=== PATIENT | female | born 1975 | race Caucasian/White ===

== ENCOUNTER 2022-10-23 21:38 | Inpatient (IN) | payer BC ==
[~2022-10-23] VITALS: Ht 167.6 cm; Wt 59.1 kg
[2022-10-23] MEDS ORDERED: ondansetron/PF 4mg/2ml inj IV ONE (22:35)
[2022-10-23] MEDS ORDERED: normal saline 1000ml 1,000 ML IV ONE (22:35)
[2022-10-23 22:46] LABS: BASOPHILS % (AUTO) 0.2 % (0-1); EOSINOPHILS % (AUTO) 0 % (0-6); HEMOGLOBIN 12.5 g/dl (12.0-16.0); LYMPHOCYTES # (AUTO) 0.7 X10'3 (1.1-4.8); LYMPHOCYTES % (AUTO) 4.2 % (21-51); MEAN CORPUSCULAR HEMOGLOBIN 33.8 PG (27.0-31.0); MEAN CORPUSCULAR HGB CONC 31.3 g/dL (33.0-36.5); MEAN CORPUSCULAR VOLUME 108.2 FL (78-98); MEAN PLATELET VOLUME 9.9 FL (7.4-10.4); MONOCYTES # (AUTO) 0.8 X10'3 (0-0.9); MONOCYTES % (AUTO) 4.6 % (2-12); NEUTROPHILS # (AUTO) 15.8 X10'3 (1.8-7.7); PLATELET COUNT 273 X10'3 (140-440); RED CELL DISTRIBUTION WIDTH 14.5 % (11.5-14.5); WHITE BLOOD COUNT 17.4 X10'3 (4.5-11.0)
[2022-10-23 23:00] LABS: ALANINE AMINOTRANSFERASE 32 U/L (12-78); ALBUMIN 4.1 G/DL (3.4-5.0); ALBUMIN/GLOBULIN RATIO 1.2 (1.1-1.5); ALKALINE PHOSPHATASE 120 IU/L (46-116); ANION GAP 40 (8-16); ASPARTATE AMINO TRANSFERASE 46 U/L (10-37); BETA HCG,QUANTITATIVE 4 mIU/ml; BILIRUBIN,TOTAL 0.7 MG/DL (0.1-1.0); BLOOD UREA NITROGEN 29 MG/DL (7-18); BUN/CREATININE RATIO 12.4 (6.6-38.0); CALCIUM 8.9 MG/DL (8.5-10.1); CHLORIDE 84 MMOL/L (99-107); CREATININE 2.33 MG/DL (0.40-0.90); MAGNESIUM 1.9 MG/DL (1.5-2.4); POTASSIUM 5.1 MMOL/L (3.5-5.1); SODIUM 135 MMOL/L (135-145); TOTAL PROTEIN 7.5 G/DL (6.4-8.2); eGFR 22 ML/MIN
[2022-10-23 23:17] LABS: GLUCOSE 583 MG/DL (70-104); TOTAL CARBON DIOXIDE 11.3 MMOL/L (24-32)
[2022-10-23] MEDS ORDERED: insulin regular, human 10 units/0.1 ml syringe IV ONE (23:50)
[2022-10-23 23:56] LABS: PLATELET ESTIMATE NORMAL; STOMATOCYTES 1+; TOTAL CELLS COUNTED 100; TOXIC GRANULATION 2+; TOXIC VACUOLATION 1+
[2022-10-23 23:57] LABS: ABG BASE EXCESS -18.9 mmol/L (-2.0-2.0); ABG HCO3 6.7 mmol/L (22.0-26.0); ABG OXYGEN SATURATION 97.2 % (94-97); ABG PCO2 (T) 17.3 mmHg (32.0-45.0); ABG PO2 (T) 108.3 mmHg (75.0-100.0); ALLEN'S TEST POSITIVE; FCOHb 0.3 % (0.0-3.9); FMetHb 0.3 % (0.0-1.5); FO2Hb 96.6 % (94-97); PATIENT TEMPERATURE 37.2; TOTAL HEMOGLOBIN 12.6 G/dl (12.0-16.0)
[2022-10-23] MEDS: normal saline 1000ml 1,000 ML IV SCH (23:58)
[2022-10-24 00:16] LABS: COLOR,URINE YELLOW (Yellow); GLUCOSE, URINE 500 mg/dl (Neg); KETONES,URINE 40 mg/dl (Neg); LEUKOCYTE ESTERASE ,URINE NEGATIVE (Neg); NITRITES, URINE NEGATIVE (Neg); OCCULT BLOOD,URINE TRACE-INTACT (Neg); PH,URINE 5.5 (4.8-8.0); PROTEIN,URINE NEGATIVE (Neg); UROBILINOGEN,URINE 0.2 E.U/dL (0.2-1.0)
[2022-10-24 00:22] LABS: CLARITY,URINE SLIGHTLY CLOUDY (Clear); UA COLLECTION TYPE NON-SPECIFIED
[2022-10-24 00:24] LABS: HYALINE CASTS >30 /LPF (NEGATIVE)
[2022-10-24 00:25] LABS: BACTERIA,URINE FEW /HPF (Neg); SQUAMOUS EPITHELIAL CELL,UR MODERATE /LPF (FEW); WBC,URINE 0-4 /HPF (0-4)
[2022-10-24 00:26] LABS: TRANSITIONAL EPI CELLS,URINE FEW /HPF
[2022-10-24] MEDS ORDERED: normal saline 1000ml 1,000 ML IV ONE ×2 (00:30→00:45)
[2022-10-24] MEDS ORDERED: magnesium hydroxide 30ml (MOM) UD suspension PO PRN (00:50)
[2022-10-24] MEDS ORDERED: ondansetron/PF 4mg/2ml inj IV PRN (00:50)
[2022-10-24] MEDS ORDERED: acetaminophen 325mg tablet PO PRN (00:50)
[2022-10-24] MEDS ORDERED: mag hydrox/Alum hydrox/simeth 30ml oral suspension PO PRN (00:50)
[2022-10-24] MEDS ORDERED: magnesium 4gm in 100ml NS 100 ML IV PRN (00:50)
[2022-10-24] MEDS ORDERED: potassium Cl 40MEQ/1/2NS 520ml 520 ML IV PRN (00:50)
[2022-10-24] MEDS ORDERED: magnesium Cl slow-release 64mg tablet PO PRN (00:50)
[2022-10-24] MEDS ORDERED: potassium Cl 20 mEq SR tablet PO PRN ×2 (00:50)
[2022-10-24] MEDS ORDERED: potassium CL 20mEq in D5-1/2NS 1,000 ML IV PRN (00:55)
[2022-10-24] MEDS ORDERED: insulin regular, human U-100 3ml vial - multi-dose IV PRN (00:55)
[2022-10-24] MEDS ORDERED: Insulin Reg/NS 100units/100mL 100 ML IV SCH (00:55)
[2022-10-24] MEDS ORDERED: pantoprazole 40MG/NS 100ML BAG 100 ML IV ONE (01:00)
[2022-10-24] MEDS ORDERED: insulin regular, human 10 units/0.1 ml syringe SQ ONE (01:45)
[2022-10-24] MEDS: normal saline 1000ml 1,000 ML IV SCH ×12 (03:11→23:55)
[2022-10-24] MEDS ORDERED: FLUT1BLS10 INH (04:25)
[2022-10-24] MEDS ORDERED: INSU100V11 SQ (04:25)
[2022-10-24 05:31] LABS: ALBUMIN 3.3 G/DL (3.4-5.0); ANION GAP 15 (8-16); BLOOD UREA NITROGEN 33 MG/DL (7-18); BUN/CREATININE RATIO 15.6 (6.6-38.0); CALCIUM 6.9 MG/DL (8.5-10.1); CHLORIDE 93 MMOL/L (99-107); CREATININE 2.11 MG/DL (0.40-0.90); GLUCOSE 439 MG/DL (70-104); MAGNESIUM 1.4 MG/DL (1.5-2.4); POTASSIUM 4.1 MMOL/L (3.5-5.1); SODIUM 131 MMOL/L (135-145); TOTAL CARBON DIOXIDE 23.4 MMOL/L (24-32); eGFR 25 ML/MIN
[2022-10-24] MEDS ORDERED: glucagon, human recombinant 1mg kit SUBCUT PRN (06:05)
[2022-10-24] MEDS ORDERED: MESSAGE TO PHARMACY PO ONE (06:05)
[2022-10-24] MEDS ORDERED: dextrose 50%-water 50ml dispensing syringe IV PRN ×2 (06:05)
[2022-10-24] MEDS ORDERED: DEXTROSE 15 GM of carb/4 tabs (each vial/BOTTLE has 4 tablets) PO PRN ×2 (06:05)
[2022-10-24] MEDS: heparin, porcine 5000 units/ml vial SQ SCH ×2 (08:00→20:13)
[2022-10-24] MEDS: K and/or MAG REPLACEMENT MC SCH ×2 (08:00→20:00)
[2022-10-24] MEDS: docusate sod 100mg capsule PO SCH ×2 (08:00→20:11)
[2022-10-24] MEDS ORDERED: insulin glargine (Lantus) pen - multi-dose SQ ONE (08:45)
[2022-10-24] MEDS: budesonide 0.5mg/2ml UD nebule IH SCH ×2 (08:59→20:51)
[2022-10-24] MEDS: albuterol 2.5 MG/3 ML nebule NEB SCH ×3 (08:59→20:51)
[2022-10-24] MEDS: insulin Lispro (HumaLOG) vial - multi-dose SQ SCH ×3 (10:11→20:29)
[2022-10-24 11:35] LABS: HEMOGLOBIN A1C 8.7 % (4.5-6.2)
--- NOTE | 2022-10-24 16:01 | NUR ---
Received report from ER nurse Susan CANTU. Patient will come up in a wheel chair.
--- NOTE | 2022-10-24 16:10 | NUR ---
Patient arrived to unit via wheelchair accompanied by ER nurse.
[2022-10-24 16:18] VITALS: BP 109/58
[2022-10-24] MEDS ORDERED: Chloraseptic (Phenol) Spray 177ml MM PRN (17:00)
[2022-10-24] MEDS ORDERED: HALLS - SOOTHE MENTHOL 1.8 MG cough drop LOZENGE MM PRN (17:00)
[2022-10-24 18:00] VITALS: BP 104/63
--- NOTE | 2022-10-24 18:24 | NUR ---
Problems reprioritized. Patient report given, questions answered & plan of care reviewed with Ryan CANTU.
--- NOTE | 2022-10-24 19:00 | NUR ---
received shift report from Amanda CANTU.
[2022-10-24] MEDS ORDERED: insulin glargine (Lantus) pen - multi-dose SQ SCH (21:00)
[2022-10-24 22:00] VITALS: BP 101/63
[2022-10-25] MEDS: normal saline 1000ml 1,000 ML IV SCH ×6 (00:50→11:55)
[2022-10-25] MEDS: albuterol 2.5 MG/3 ML nebule NEB SCH ×2 (02:51→09:32)
[2022-10-25 03:01] VITALS: BP 109/64
--- NOTE | 2022-10-25 06:24 | NUR ---
Problems reprioritized. Patient report given, questions answered & plan of care reviewed with Amanda CANTU, patient stable at transfer of care.
--- NOTE | 2022-10-25 06:30 | NUR ---
Patient in room PCU 3018. I have received report from Ryan CANTU and had the opportunity to ask questions and assume patient care.
[2022-10-25 06:38] LABS: BASOPHILS % (AUTO) 0.2 % (0-1); EOSINOPHILS % (AUTO) 0.1 % (0-6); HEMOGLOBIN 11.4 g/dl (12.0-16.0); LYMPHOCYTES # (AUTO) 1.5 X10'3 (1.1-4.8); LYMPHOCYTES % (AUTO) 11.5 % (21-51); MEAN CORPUSCULAR HEMOGLOBIN 33.7 PG (27.0-31.0); MEAN CORPUSCULAR HGB CONC 33.6 g/dL (33.0-36.5); MEAN CORPUSCULAR VOLUME 100.3 FL (78-98); MEAN PLATELET VOLUME 9.1 FL (7.4-10.4); MONOCYTES # (AUTO) 0.6 X10'3 (0-0.9); MONOCYTES % (AUTO) 4.7 % (2-12); NEUTROPHILS # (AUTO) 10.7 X10'3 (1.8-7.7); NEUTROPHILS % (AUTO) 83.5 % (42-75); PLATELET COUNT 173 X10'3 (140-440); RED BLOOD COUNT 3.39 X10'6 (4.20-5.60); RED CELL DISTRIBUTION WIDTH 13.1 % (11.5-14.5); WHITE BLOOD COUNT 12.8 X10'3 (4.5-11.0)
[2022-10-25 06:52] LABS: ALANINE AMINOTRANSFERASE 32 U/L (12-78); ALBUMIN 3.1 G/DL (3.4-5.0); ALBUMIN/GLOBULIN RATIO 1.1 (1.1-1.5); ALKALINE PHOSPHATASE 69 IU/L (46-116); ANION GAP 4 (8-16); ASPARTATE AMINO TRANSFERASE 42 U/L (10-37); BILIRUBIN,TOTAL 0.4 MG/DL (0.1-1.0); BLOOD UREA NITROGEN 20 MG/DL (7-18); CALCIUM 7.7 MG/DL (8.5-10.1); CHLORIDE 98 MMOL/L (99-107); CREATININE 1.05 MG/DL (0.40-0.90); GLUCOSE 268 MG/DL (70-104); MAGNESIUM 2.3 MG/DL (1.5-2.4); POTASSIUM 3.8 MMOL/L (3.5-5.1); SODIUM 134 MMOL/L (135-145); TOTAL CARBON DIOXIDE 31.8 MMOL/L (24-32); eGFR 56 ML/MIN
[2022-10-25 07:00] VITALS: BP 123/80
[2022-10-25] MEDS: docusate sod 100mg capsule PO SCH (07:50)
[2022-10-25] MEDS: heparin, porcine 5000 units/ml vial SQ SCH (07:50)
[2022-10-25] MEDS: K and/or MAG REPLACEMENT MC SCH (08:00)
[2022-10-25] MEDS: budesonide 0.5mg/2ml UD nebule IH SCH (09:31)
[2022-10-25] MEDS: insulin Lispro (HumaLOG) vial - multi-dose SQ SCH (10:31)
[2022-10-25 11:25] VITALS: BP 130/83
--- NOTE | 2022-10-25 12:42 | NUR ---
Patient discharged home. 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 Patient escorted out by nurse and left via private vehicle.
--- NOTE | 2022-10-25 13:37 | NUR ---
Pt with T1DM admit for DKA, current A1c 8.7%. Pt discharged prior to RD being available for bedside visit. Written DM education with RD contact information mailed to patient's home address found in EMR. Will remain available. Addendum: 10/25/22 at [address] Amended: Links added.
== END 2022-10-25 12:37 | disposition home or self-care (01) | DRG 638 ==
LOC: ER 21:40 → ED HOLD 10-24 00:53 → PCU 3S 10-24 16:08
PROVIDERS: ADMIT Internal Medicine; ATTEND Internal Medicine
DX: E10.11 Type 1 diabetes mellitus with ketoacidosis with coma (principal); E87.1 Hypo-osmolality and hyponatremia; N17.9 Acute kidney failure, unspecified; Z96.41 Presence of insulin pump (external) (internal); E83.42 Hypomagnesemia; E83.51 Hypocalcemia; Z79.4 Long term (current) use of insulin; Z79.899 Other long term (current) drug therapy
CPT/HCPCS: 36415; 36600; 80048; 80053; 81001; 81003; 82803; 82948; 83036; 83735; 84702; 85007; 85018; 85025; 94640; 94760; 99285; G0378; J1644; J1815; J2405; J7030